=== PATIENT | male | born 1955 | race Caucasian/White ===

== ENCOUNTER → 2016-11-08 | Outpatient (CLI) | payer MEDICARE | LOC: YCFC.O 15:07 | PROVIDERS: ATTEND Nurse Practitioner Family | DX: I10 Essential (primary) hypertension (principal); E11.65 Type 2 diabetes mellitus with hyperglycemia; Z12.5 Encounter for screening for malignant neoplasm of prostate | CPT/HCPCS: 36415; 80053; 80061; 83036; 85025; G0103 ==

== ENCOUNTER 2016-12-20 17:44 | Emergency (ER) | payer MEDICARE ==
[2016-12-20] MEDS ORDERED: SULFA/TRIMETH 800/160 (DS) TAB 1 EA TAB PO ONE (18:06)
--- NOTE | 2016-12-20 18:08 | ED.PDOC ---
History of Present Illness - General Time Seen by Provider: 12/20/16 17:45 Source: patient Exam Limitations: no limitations - History of Present Illness Initial Comments: the patient is a 61-year-old male presenting to the emergency room secondary to pain in the second digit of his right foot. The patient is a diabetic and does appear to have a long-standing diabetic ulcer to the tip of the second toe which is essentially a hammertoe. He has significant mycosis of the nail which has made it grow around the tip of the toe. there is some mild extending cellulitis up to the proximal interphalangeal joint. No cellulitis extending further than that. This is obviously an ongoing process and the patient states that his primary care doctor has him on doxycycline for it. Timing/Duration: 1 week Severity: mild Improving Factors: nothing Worsening Factors: nothing Associated Symptoms: denies symptoms Allergies/Adverse Reactions: Allergies NO KNOWN ALLERGY Allergy (Verified 05/05/15 13:33) Home Medications: Ambulatory Orders Athritis Pill 1 ea PO BID 03/18/15 Lisinopril 20 mg PO DAILY 03/18/15 Metformin HCl 1,000 mg PO DAILY 03/18/15 Cyclobenzaprine HCl [Flexeril] 10 mg PO TID PRN #30 tab 03/01/16 metFORMIN HCL [Glucophage] 500 mg PO DAILY 03/01/16 Sulfa/Trimeth 800/160 (Ds) Tab [Bactrim DS Tab] 1 ea PO BID #10 tab 12/20/16 Review of Systems - Review of Systems Constitutional: States: no symptoms reported EENTM: States: no symptoms reported Respiratory: States: no symptoms reported Cardiology: States: no symptoms reported Gastrointestinal/Abdominal: States: no symptoms reported Genitourinary: States: no symptoms reported Musculoskeletal: States: see HPI Skin: States: see HPI Neurological: States: no symptoms reported - the patient is at his baseline Endocrine: States: no symptoms reported Past Medical History (General) - Patient Medical History Hx Seizures: No Hx Stroke: No Hx Dementia: No Hx Asthma: No Hx of COPD: No Hx Cardiac Disorders: No Hx Congestive Heart Failure: No Hx Pacemaker: No Hx Hypertension: Yes Hx Thyroid Disease: No Hx Diabetes: Yes Hx Gastroesophageal Reflux: Yes Hx Renal Disease: No Hx Cancer: No Hx of HIV: No Hx Hepatitis C: No Hx MRSA: Yes - Toe Wound 2015 MRSA Source:: Wound - Vaccination History Hx Tetanus, Diphtheria Vaccination: Yes Hx Influenza Vaccination: Yes Hx Pneumococcal Vaccination: No - Social History Hx Tobacco Use: Yes Hx Chewing Tobacco Use: No Hx Alcohol Use: No Hx Substance Use: No Hx Substance Use Treatment: No Hx Depression: No Hx Physical Abuse: No Hx Emotional Abuse: No Hx Suspected Abuse: No Family Medical History - Family History Father Family History: Unknown Living Status: Cause of : [place] Physical Exam - Physical Exam General Appearance: Alert, Comfortable, No apparent distress Eye Exam: right normal, left other - missing eye Ears, Nose, Throat: hearing grossly normal, normal ENT inspection - chronic changes including a missing I, normal pharynx Neck: non-tender, full range of motion, supple Respiratory: chest non-tender, lungs clear, normal breath sounds, no respiratory distress, no accessory muscle use Cardiovascular/Chest: normal peripheral pulses, no edema, other - regular rate Peripheral Pulses: radial,right: 2+, radial,left: 2+, dorsalis pedis,right: 2+, dorsalis pedis,left: 2+ Gastrointestinal/Abdominal: non tender, soft Rectal Exam: deferred Extremity: normal range of motion, no pedal edema, normal capillary refill, other - ulcers stated above. Neurologic: alert, normal mood/affect, oriented x 3, other - he does have a mild peripheral neuropathy Skin Exam: normal color - with the exception of the ulcer is stated above Progress - Progress Progress: 12/20/16 18:09 the patient is a 61-year-old male presenting to the emergency room secondary to a diabetic ulcer to the tip of the right toe. Ulcer size is approximately 1.75 cm in diameter. The patient does have surrounding hypertrophic callus. Additionally he has over groin onychomycotic nail surrounding the upper part of the ulcer. After risk and benefits were explained , a #10 blade scalpel was used to debride the hypertrophic tissue that is worsening the ulcer. It is also used to debride the overlapping onychomycotic nail. In the process of debriding onychomycotic nail we decompressed an ingrown toenail and a small amount of pus did drain out. We did culture this. The patient was given a dose of Bactrim. He is being written for 5 days of oral Bactrim. He needs to follow-up with his primary care doctor for the culture results. He does have some mild extending cellulitis up to the proximal interphalangeal joint. He does need to monitor this to make sure that it does not become worse. He also needs to do a better job of monitoring his blood sugars. He needs to try and keep pressure off of the toe. he can continue the doxycycline that he is already on as well. Take the Bactrim with food. ER warnings were given. Departure - Departure Clinical Impression: Diabetic ulcer of toe, Ingrowing toenail of right foot Cellulitis, toe Qualifiers: Laterality: right Qualified Code(s): L03.031 - Cellulitis of right toe Disposition: Discharge to Home or Self Care Condition: Fair Instructions: DI for Diabetic Foot Ulcer Diet: diabetic diet Referrals: Olga Sanchez FNP [Primary Care Provider] - 1-5 Days Prescriptions: Sulfa/Trimeth 800/160 (Ds) Tab [Bactrim DS Tab] 1 ea PO BID #10 tab Home Medications: Ambulatory Orders Athritis Pill 1 ea PO BID 03/18/15 Lisinopril 20 mg PO DAILY 03/18/15 Metformin HCl 1,000 mg PO DAILY 03/18/15 Cyclobenzaprine HCl [Flexeril] 10 mg PO TID PRN #30 tab 03/01/16 metFORMIN HCL [Glucophage] 500 mg PO DAILY 03/01/16 Sulfa/Trimeth 800/160 (Ds) Tab [Bactrim DS Tab] 1 ea PO BID #10 tab 12/20/16 Additional Instructions: the patient is a 61-year-old male presenting to the emergency room secondary to a diabetic ulcer to the tip of the right toe. Ulcer size is approximately 1.75 cm in diameter. The patient does have surrounding hypertrophic callus. Additionally he has over groin onychomycotic nail surrounding the upper part of the ulcer. a #10 blade scalpel was used to debride the hypertrophic tissue that is worsening the ulcer. It is also used to debride the overlapping onychomycotic nail. In the process of debriding onychomycotic nail we decompressed an ingrown toenail and a small amount of pus did drain out. We did culture this. The patient was given a dose of Bactrim. He is being written for 5 days of oral Bactrim. He needs to follow-up with his primary care doctor for the culture results. He does have some mild extending cellulitis up to the proximal interphalangeal joint. He does need to monitor this to make sure that it does not become worse. He also needs to do a better job of monitoring his blood sugars. He needs to try and keep pressure off of the toe. he can continue the doxycycline that he is already on as well. Take the Bactrim with food. ER warnings were given.
[2016-12-20] MEDS ORDERED: NEOMYCIN-BACITRACIN-POLYMYXIN 0.9 GM UD TOP ONE (18:31)
[2016-12-20 19:11] VITALS: BP 104/63; TEMP 98.3; O2SAT 93
== END 2016-12-20 18:35 | disposition home or self-care (01) ==
LOC: ER 17:44
DX: E11.621 Type 2 diabetes mellitus with foot ulcer (principal); L97.519 Non-pressure chronic ulcer of other part of right foot with unspecified severity; L03.031 Cellulitis of right toe; L60.0 Ingrowing nail; I10 Essential (primary) hypertension; K21.9 Gastro-esophageal reflux disease without esophagitis; Z86.14 Personal history of Methicillin resistant Staphylococcus aureus infection; Z79.84 Long term (current) use of oral hypoglycemic drugs; Z79.899 Other long term (current) drug therapy; Z87.891 Personal history of nicotine dependence

== ENCOUNTER 2017-04-30 10:00 | Emergency (ER) | payer MEDICARE ==
[2017-04-30 10:26] VITALS: BP 114/71; TEMP 98.5; O2SAT 93
== END 2017-04-30 11:27 | disposition left against medical advice (07) ==
LOC: ER 10:00
DX: Z53.21 Procedure and treatment not carried out due to patient leaving prior to being seen by health care provider (principal)

== ENCOUNTER → 2018-06-12 | Outpatient (CLI) | payer MEDICARE | LOC: LAB.O 07:12 | PROVIDERS: ATTEND Nurse Practitioner Family | DX: I10 Essential (primary) hypertension (principal); E11.9 Type 2 diabetes mellitus without complications ==

== ENCOUNTER 2018-07-10 13:31 | Emergency (ER) | payer MEDICARE ==
--- NOTE | 2018-07-10 13:53 | ED.PDOC ---
History of Present Illness - General Stated Complaint: KNEE PAIN Time Seen by Provider: 07/10/18 13:44 Source: patient Exam Limitations: no limitations - History of Present Illness Initial Comments: C/O SEVERAL WEEK HX OF INCREASING PAIN IN R KNEE. REMOTE HX OF FALL NONE RECENT. Pain - Lower Extremity: mild: Right Knee Method of Injury: fell Improving Factors: nothing Worsening Factors: movement Allergies/Adverse Reactions: Allergies NO KNOWN ALLERGY Allergy (Verified 04/30/17 10:26) Home Medications: Ambulatory Orders Lisinopril 20 mg PO DAILY 03/18/15 Metformin HCl 1,000 mg PO DAILY 03/18/15 Indomethacin 50 mg PO TID PRN #14 cap 07/10/18 Review of Systems - Review of Systems Constitutional: Denies: chills, fever EENTM: States: no symptoms reported Respiratory: States: no symptoms reported Musculoskeletal: States: joint pain - C/O PAIN AND SWELLING R KNEE, joint swelling. Denies: back pain, neck pain Skin: States: no symptoms reported Neurological: States: no symptoms reported Past Medical History (General) - Patient Medical History Hx Seizures: No Hx Stroke: No Hx Dementia: No Hx Asthma: No Hx of COPD: No Hx Cardiac Disorders: No Hx Congestive Heart Failure: No Hx Pacemaker: No Hx Hypertension: Yes Hx Thyroid Disease: No Hx Diabetes: Yes Hx Gastroesophageal Reflux: Yes Hx Renal Disease: No Hx Cancer: No Hx of HIV: No Hx Hepatitis C: No Hx MRSA: Yes - Toe Wound 2015 MRSA Source:: Wound - Vaccination History Hx Tetanus, Diphtheria Vaccination: Yes Hx Influenza Vaccination: Yes Hx Pneumococcal Vaccination: No - Social History Hx Tobacco Use: Yes Hx Chewing Tobacco Use: No Hx Alcohol Use: No Hx Substance Use: No Hx Substance Use Treatment: No Hx Depression: No Hx Physical Abuse: No Hx Emotional Abuse: No Hx Suspected Abuse: No Family Medical History - Family History Father Family History: Unknown Living Status: Cause of : [place] Physical Exam - Physical Exam General Appearance: Alert, No apparent distress Eyes, Ears, Nose, Throat: PERRL/EOMI Neck: non-tender, full range of motion Back: normal inspection, no CVA tenderness Knee: other - MOD CHANGES C/W OSTEO-ARTHRITIS. NO EFFUSION, NO INSTABILITY. TTP MEDIAL COMPARTMENT. Neuro/Tendon: normal sensation, normal motor functions Mental Status: alert, oriented x 3 Skin: normal color Progress - EKG/XRAY/CT XRAY: knee - DJD MAINE, NO FX Departure - Departure Clinical Impression: Arthritis of knee, Diabetes 1.5, managed as type 2 Hypertension Qualifiers: Hypertension type: essential hypertension Qualified Code(s): I10 - Essential ( primary) hypertension Time of Disposition: 15:26 Disposition: Discharge to Home or Self Care Condition: Good Instructions: DI for Knee Pain, Osteoarthritis (DC) Referrals: Olga Sanchez NP [Primary Care Provider] - 1-2 Weeks Prescriptions: Indomethacin 50 mg PO TID PRN #14 cap PRN Reason: Pain Home Medications: Ambulatory Orders Lisinopril 20 mg PO DAILY 03/18/15 Metformin HCl 1,000 mg PO DAILY 03/18/15 Indomethacin 50 mg PO TID PRN #14 cap 07/10/18
[2018-07-10 13:57] VITALS: BP 103/67; TEMP 98.6; O2SAT 97
--- NOTE | 2018-07-10 15:38 | RAD ---
EXAM DESCRIPTION: Knee,Right 2 or More Views CLINICAL HISTORY: PA/LAT knee pain COMPARISON: None. IMPRESSION: 2 views of the right knee show no evidence of acute fracture, focal bone destruction, or joint dislocation. Calcifications of the menisci are seen consistent with chondrocalcinosis suggesting CPPD arthropathy versus pseudogout. Mild narrowing of the tibiofemoral compartment is seen with mild medial and lateral joint line osteophytes consistent with moderate osteoarthritic changes are Severe narrowing of the patellofemoral compartment is seen with joint line osteophytes consistent with severe osteoarthritic changes. Calcifications in the increased density in the suprapatellar bursa region suggests complex joint effusion. Moderate vascular calcifications are seen. Mild soft tissue thickening anterior to the inferior patellar could represent soft tissue swelling or edema. Electronically signed by: Alexis Parham MD 07/10/2018 3:37 PM [facility]
== END 2018-07-10 15:49 | disposition home or self-care (01) ==
LOC: ER 13:31
DX: M17.11 Unilateral primary osteoarthritis, right knee (principal); E11.9 Type 2 diabetes mellitus without complications; I10 Essential (primary) hypertension; K21.9 Gastro-esophageal reflux disease without esophagitis; Z87.891 Personal history of nicotine dependence; Z79.84 Long term (current) use of oral hypoglycemic drugs; Z79.899 Other long term (current) drug therapy

== ENCOUNTER → 2020-01-13 | Outpatient (CLI) | payer MEDICARE | LOC: YCFC.O 13:15 | PROVIDERS: ATTEND Nurse Practitioner | DX: L02.91 Cutaneous abscess, unspecified (principal) ==

== ENCOUNTER → 2020-01-25 | Outpatient (CLI) | payer MEDICARE | LOC: YCFC.O 10:24 | PROVIDERS: ATTEND Family Medicine | DX: S41.102A Unspecified open wound of left upper arm, initial encounter (principal) ==